=== PATIENT | male | born 1945 | race Caucasian/White ===

== ENCOUNTER 2017-10-15 17:19 | Emergency (ER) | payer MEDICARE, BC ==
[~2017-10-15] VITALS: Ht 177.8 cm; Wt 84.7 kg
[2017-10-15] MEDS ORDERED: dexamethasone sod phosphate 10mg/ml inj IV STA (17:36)
[2017-10-15] MEDS ORDERED: clindamycin-Cleocin 900mg/D5W 50 ML IV ONE (17:40)
[2017-10-15] MEDS ORDERED: iohexol 300mg/ml 100ml inj. ONE (17:47)
[2017-10-15 18:03] LABS: BASOPHILS # (AUTO) 0.1 X10'3 (0-0.2); BASOPHILS % (AUTO) 0.8 % (0-1); EOSINOPHILS # (AUTO) 0.1 X10'3 (0-0.9); EOSINOPHILS % (AUTO) 1.1 % (0-6); HEMATOCRIT 42.3 % (42.0-52.0); HEMOGLOBIN 14.8 g/dl (14.0-17.9); LYMPHOCYTES # (AUTO) 2.8 X10'3 (1.1-4.8); LYMPHOCYTES % (AUTO) 29.9 % (21-51); MEAN CORPUSCULAR HEMOGLOBIN 31.9 PG (27.0-31.0); MEAN CORPUSCULAR VOLUME 91.2 FL (78-98); MEAN PLATELET VOLUME 7.1 FL (7.4-10.4); MONOCYTES # (AUTO) 0.7 X10'3 (0-0.9); MONOCYTES % (AUTO) 7.9 % (2-12); NEUTROPHILS # (AUTO) 5.6 X10'3 (1.8-7.7); NEUTROPHILS % (AUTO) 60.3 % (42-75); PLATELET COUNT 261 X10'3 (140-440); RED BLOOD COUNT 4.63 X10'6 (4.70-6.10); RED CELL DISTRIBUTION WIDTH 13.1 % (11.5-14.5); WHITE BLOOD COUNT 9.2 X10'3 (4.5-11.0)
[2017-10-15 18:14] LABS: ALBUMIN 3.7 G/DL (3.4-5.0); ANION GAP 11 (8-16); BLOOD UREA NITROGEN 15 MG/DL (7-18); BUN/CREATININE RATIO 11.9 (5.4-32.0); CALCIUM 8.7 MG/DL (8.5-10.1); CHLORIDE 105 MMOL/L (99-107); CREATININE 1.26 MG/DL (0.60-1.10); GLUCOSE 101 MG/DL (70-104); POTASSIUM 3.6 MMOL/L (3.5-5.1); SODIUM 139 MMOL/L (135-145); TOTAL CARBON DIOXIDE 23.2 MMOL/L (24-32); eGFR 57 ML/MIN
[2017-10-15 19:09] LABS: MONOTEST NEGATIVE (Neg)
[2017-10-15] MEDS ORDERED: MULT-38 PO (20:28)
[2017-10-15] MEDS ORDERED: MESA500C PO (20:28)
[2017-10-15] MEDS ORDERED: OMEP20TA23 PO (20:28)
[2017-10-15] MEDS ORDERED: ondansetron/PF 4mg/2ml inj IV STA (20:58)
[2017-10-15] MEDS ORDERED: morphine 4 MG/ML inj SYRINge IV STA (20:58)
[2017-10-15] MEDS ORDERED: hydrALAZINE 20mg/ml inj. IV STA (21:22)
[2017-10-15 22:45] VITALS: BP 152/77
== END 2017-10-15 23:06 | disposition short-term general hospital (02) ==
LOC: ER 17:20
DX: I71.2 Thoracic aortic aneurysm, without rupture (principal); L03.221 Cellulitis of neck; M60.9 Myositis, unspecified; R59.1 Generalized enlarged lymph nodes; I10 Essential (primary) hypertension; Z79.899 Other long term (current) drug therapy
CPT/HCPCS: 36415; 70491; 71260; 80048; 83605; 84145; 85025; 86308; 87040; 93005; 96365; 96375; 99285; J0360; J1100; J2270; J2405; J3490; J7030; Q9967

== ENCOUNTER 2019-04-15 10:47 | Inpatient (IN) | payer MEDICARE ==
[2019-04-08 14:59] LABS: BASOPHILS # (AUTO) 0.1 X10'3 (0-0.2); BASOPHILS % (AUTO) 0.6 % (0-1); EOSINOPHILS # (AUTO) 0.4 X10'3 (0-0.9); EOSINOPHILS % (AUTO) 4.7 % (0-6); LYMPHOCYTES # (AUTO) 2.5 X10'3 (1.1-4.8); LYMPHOCYTES % (AUTO) 26.5 % (21-51); MEAN CORPUSCULAR HEMOGLOBIN 31.7 PG (27.0-31.0); MEAN CORPUSCULAR HGB CONC 35.1 g/dL (33.0-36.5); MEAN CORPUSCULAR VOLUME 90.3 FL (78-98); MEAN PLATELET VOLUME 7.2 FL (7.4-10.4); MONOCYTES % (AUTO) 10.8 % (2-12); NEUTROPHILS # (AUTO) 5.4 X10'3 (1.8-7.7); NEUTROPHILS % (AUTO) 57.4 % (42-75); PRE OP HEMATOCRIT 42.4 % (42.0-52.0); PRE OP HEMOGLOBIN 14.9 g/dL (14.0-17.9); PRE OP PLATELET COUNT 217 X10'3 (140-440)
[2019-04-08 15:15] LABS: ALBUMIN 3.8 G/DL (3.4-5.0); ALBUMIN/GLOBULIN RATIO 0.9 (1.1-1.5); ALKALINE PHOSPHATASE 87 IU/L (46-116); BLOOD UREA NITROGEN 18 MG/DL (7-18); BUN/CREATININE RATIO 16.2 (5.4-32.0); CALCIUM 8.6 MG/DL (8.5-10.1); CHLORIDE 105 MMOL/L (99-107); CREATININE 1.11 MG/DL (0.60-1.10); PRE OP ALT 30 U/L (30-65); PRE OP ANION GAP 10 (8-16); PRE OP AST 30 U/L (10-37); PRE OP BILIRUB, TOTAL 0.4 MG/DL (0.0-1.0); PRE OP GLUCOSE 102 MG/DL (70-104); PRE OP POTASSIUM 4.2 MMOL/L (3.4-5.1); PRE OP SODIUM 141 MMOL/L (135-145); TOTAL CARBON DIOXIDE 26.5 MMOL/L (24-32); TOTAL PROTEIN 7.9 G/DL (6.4-8.2); eGFR 65 ML/MIN
[~2019-04-15] VITALS: Ht 172.7 cm; Wt 83.0 kg
[2019-04-15] VITALS (16 sets, daily range): BP systolic 119–168; BP diastolic 62–92
[~2019-04-15 10:47] MED LIST: ATEN25TA PO; BALS750C PO; BALSALAZIDE DISODIUM PO SCH; Cefazolin 2GM/100ML NS IVPB 100 ML IV ONE; DOCUMENT DATE & TIME OF BETA-BLOCKER PO ONE; HYDROmorphone 1 mg/ml syringe IV PRN; HYDROmorphone inj. 0.5 MG/0.5 ML DISP.SYRIN IV PRN; LISI40TA4 PO; MULT-38 PO; OMEP20TA23 PO; acetaminophen 325mg tablet PO ONE; acetaminophen 325mg tablet PO PRN; bisacodyl 10mg suppository rectal RC PRN; celeCOXIB 100mg capsule PO ONE; diphenhydrAMINE 25mg capsule PO PRN; famotidine 10mg tablet PO ONE; gabapentin 300mg capsule PO ONE; magnesium hydroxide 30ml (MOM) UD suspension PO PRN; metoclopramide 5 mg/ml inj IV ONE; non-formulary drug (Omeprazole Magnesium (Prilosec Otc) 1 TAB) PO SCH; ondansetron/PF 4mg/2ml inj IV PRN; oxyCODONE SR 10mg (sust. release) tab -2 tabs (20mg) PO ONE; oxyCODONE/APAP 10/325mg tablet PO PRN; ringers solution, lacted 1,000 ML IV SCH; tranexamic acid 1gm/0.7% sal. 100 ML IV ONE; tranexamic acid inj. 1,000 MG in normal saline 100 ML IV ONE; vancomycin inj 1,500 MG in normal saline 300ml IV soln IV ONE
[2019-04-15] MEDS ORDERED: ketorolac trometh. 30mg/ml inj. ONE (12:07)
[2019-04-15] MEDS ORDERED: ROPIVAcaine 0.5% (5mg/ml) 30ml vial ONE ×2 (12:08→13:34)
[2019-04-15] MEDS ORDERED: cloNIDine hcl/PF 100mcg/ml inj ONE (12:08)
[2019-04-15] MEDS ORDERED: epiNEPHrine 1 mg/ml inj ONE (12:08)
[2019-04-15] MEDS ORDERED: vancomycin 1,000mg inj ONE (12:08)
[2019-04-15] MEDS ORDERED: ROPIVAcaine 0.2%/PF PUMP/bolus 550 ML ADDCANAL SCH (12:35)
[2019-04-15] MEDS ORDERED: ondansetron/PF 4mg/2ml inj IV PRN (12:35)
[2019-04-15] MEDS ORDERED: ringers solution, lacted 1,000 ML IV SCH (12:35)
[2019-04-15] MEDS ORDERED: ROPIVAcaine 0.2% (10 MG/5 ML) BOLUS INJECTION ADDCANAL PRN (12:35)
[2019-04-15] MEDS ORDERED: morphine 4 MG/ML inj SYRINge IV PRN (12:35)
[2019-04-15] MEDS ORDERED: HYDROmorphone inj. 0.5 MG/0.5 ML DISP.SYRIN IV PRN ×2 (12:35)
[2019-04-15] MEDS ORDERED: fentaNYL/PF 50MCG/1 ML 2ML syringe ONE (12:41)
[2019-04-15] MEDS ORDERED: MIDAZolam 5mg/5ml vial ONE (12:42)
[2019-04-15] MEDS ORDERED: diphenhydrAMINE 50 mg/ml inj ONE (14:04)
[2019-04-15] MEDS ORDERED: LIDOcaine 1%/PF 5ML 10 MG/ML VIAL ONE (14:04)
[2019-04-15] MEDS ORDERED: propofol inj 20 ML IV ONE (14:04)
[2019-04-15] MEDS ORDERED: flumazenil 0.1 mg/ml inj. IV ONE (15:08)
--- NOTE | 2019-04-15 15:10 | NUR ---
Received from OR via BED , accompanied by Anesthesiologist DR BALL and report given by Anesthesiolgist. PATIENT WAKING UP, DENIES PAIN, V/S WNL, NEUROVASCULAR CHECKS INTACT, 18G PIV LUE , JANEEN DRESSING TO LEFT KNEE CDI W/ COLD POWDER PACK AND SENSATION T-12 .
--- NOTE | 2019-04-15 15:38 | NUR ---
Received report from recovery. Awaiting patient's arrival to room 0047O
--- NOTE | 2019-04-15 16:10 | NUR ---
Patient arrived to room 4022A. Post-op vitals in progress. Patient vital signs are stable. Bed locked and lowered, nonskid socks on, call light in reach, and frequent rounding.
--- NOTE | 2019-04-15 16:10 | NUR ---
PATIENT WAKING UP, DENIES PAIN, V/S WNL, NEUROVASCULAR CHECKS INTACT, 18G PIV LUE , JANEEN DRESSING TO LEFT KNEE CDI W/ COLD POWDER PACK AND SENSATION T-12. PATIENT TAKEN TO 4022B WITH ALL BELONGINGS AND HOOKED UP TO MONITORS IN ROOM AND REPORT GIVEN TO RETAIL BRANCH MANAGER WHO HAS TAKEN OVER PATIENT CARE. .
[2019-04-15] MEDS: gabapentin 300mg capsule PO SCH ×3 (16:22→21:37)
[2019-04-15] MEDS: multivitamins, therapeutics tablet PO SCH (16:22)
[2019-04-15] MEDS: aspirin 325mg tablet PO SCH (16:23)
[2019-04-15] MEDS ORDERED: pantoprazole 40mg Tablet.DR PO SCH (16:28)
[2019-04-15] MEDS: cefazolin/dext.iso 2gm/100ml 100 ML IV SCH (17:09)
--- NOTE | 2019-04-15 18:25 | NUR ---
Problems reprioritized. Patient report given, questions answered & plan of care reviewed with VIDHYA Mccarty. Patient stable at transfer of care.
--- NOTE | 2019-04-15 18:27 | NUR ---
Report rec'd from Kalie Larson rn.
--- NOTE | 2019-04-15 18:38 | NUR ---
END OF DAY NOTE Patient arrived to floor at 1610 today. Vital signs stable. Post-op vitals are in progress. Post-op antibiotic given. Patient ambulated 80ft. with PT with FWW. Patient is advancing diet as tolerated. Patient stable at transfer of care.
[2019-04-15] MEDS ORDERED: tranexamic acid inj. 800 MG in normal saline 100ml IV soln 100 ML IV ONE (19:30)
[2019-04-15] MEDS: BALSALAZIDE DISODIUM 750 MG PO SCH (20:00)
[2019-04-15] MEDS ORDERED: lisinopril 5mg tablet PO SCH (21:00)
[2019-04-15] MEDS ORDERED: sennosides 8.6mg tablet PO SCH (21:00)
[2019-04-15] MEDS ORDERED: atenolol 25mg tablet PO SCH (21:00)
[2019-04-15] MEDS: potassium cl 20mEq in 1/2 NS 1,000 ML IV SCH (21:33)
[2019-04-15] MEDS: ascorbic acid 500mg tablet PO SCH (21:37)
[2019-04-16] MEDS: potassium cl 20mEq in 1/2 NS 1,000 ML IV SCH (00:30)
[2019-04-16] MEDS: cefazolin/dext.iso 2gm/100ml 100 ML IV SCH (01:25)
[2019-04-16 02:00] VITALS: BP 155/95
[2019-04-16 06:00] VITALS: BP 165/75
[2019-04-16 06:44] LABS: BASOPHILS # (AUTO) 0.1 X10'3 (0-0.2); BASOPHILS % (AUTO) 0.4 % (0-1); EOSINOPHILS # (AUTO) 0.1 X10'3 (0-0.9); EOSINOPHILS % (AUTO) 0.8 % (0-6); HEMATOCRIT 36.4 % (42.0-52.0); HEMOGLOBIN 12.6 g/dl (14.0-17.9); LYMPHOCYTES # (AUTO) 1.7 X10'3 (1.1-4.8); MEAN CORPUSCULAR HEMOGLOBIN 31.7 PG (27.0-31.0); MEAN CORPUSCULAR HGB CONC 34.5 g/dL (33.0-36.5); MEAN CORPUSCULAR VOLUME 91.9 FL (78-98); MEAN PLATELET VOLUME 7.5 FL (7.4-10.4); MONOCYTES # (AUTO) 1.2 X10'3 (0-0.9); MONOCYTES % (AUTO) 7.6 % (2-12); NEUTROPHILS # (AUTO) 12.6 X10'3 (1.8-7.7); NEUTROPHILS % (AUTO) 80.2 % (42-75); PLATELET COUNT 215 X10'3 (140-440); RED BLOOD COUNT 3.96 X10'6 (4.70-6.10); RED CELL DISTRIBUTION WIDTH 12.9 % (11.5-14.5); WHITE BLOOD COUNT 15.7 X10'3 (4.5-11.0)
[2019-04-16 07:03] LABS: ANION GAP 5 (8-16); CHLORIDE 103 MMOL/L (99-107); POTASSIUM 4.3 MMOL/L (3.5-5.1); SODIUM 136 MMOL/L (135-145)
[2019-04-16] MEDS: gabapentin 300mg capsule PO SCH (07:29)
[2019-04-16] MEDS: multivitamins, therapeutics tablet PO SCH (07:29)
[2019-04-16] MEDS: aspirin 325mg tablet PO SCH (07:30)
[2019-04-16] MEDS: ascorbic acid 500mg tablet PO SCH (07:31)
[2019-04-16] MEDS: BALSALAZIDE DISODIUM 750 MG PO SCH (07:56)
[2019-04-16 10:04] VITALS: BP 164/76
--- NOTE | 2019-04-16 12:40 | NUR ---
Patient stable for discharge home. Education for On Q, post op care, and JANEEN dressing provided. Belongings gathered and with patient.
[2019-04-16] MEDS ORDERED: celeCOXIB 100mg capsule PO SCH (20:00)
--- NOTE | 2019-04-18 10:03 | NUR ---
Case Management DC follow up: spoke to pt via telephone: pt states he is feeling good. Pain is managed, Denies SOB, cp, emergent pain, abnormal swelling, redness, warmth to surg site, L extremity. Is getting up and around using fww, starting to do exercises. verbalizes understanding of medications and why prescribed. All needs met, questions answered at hospital. Reports there bottom part of drsg was saturated, so spouse changed drsg, just a little spot at bottom. Denies odor, denies excessive oozing and the incision is open at the distal end. OnQ pump DCd. pt has follow up w/Dr Wellington 04/29/[address] to [address] Wellington office today to let them know about incision being open, & drainage as a precaution. pt will call PCP to inquire about follow up appt. No further questions at this time.
== END 2019-04-16 12:40 | disposition home or self-care (01) | DRG 470 ==
LOC: PAS 10:47 → ORTHO 4S 10:49 → EDSTATUS 14:00 → OBSVTOIN 16:13 → INTOOBSV 16:13 → ORTHO 4S 16:13 → UNDOADMOB 16:13
PROVIDERS: ADMIT Orthopaedic Surgery; ATTEND Orthopaedic Surgery
PROC: 3E0T3BZ Introduction of Anesthetic Agent into Peripheral Nerves and Plexi, Percutaneous Approach (ICD-10-PCS; 2019-04-15)
PROC: 0SRD0J9 Replacement of Left Knee Joint with Synthetic Substitute, Cemented, Open Approach (ICD-10-PCS; principal; 2019-04-15 13:02)
DX: M17.12 Unilateral primary osteoarthritis, left knee (principal); D62 Acute posthemorrhagic anemia; K50.90 Crohn's disease, unspecified, without complications; I10 Essential (primary) hypertension; Z79.899 Other long term (current) drug therapy; K21.9 Gastro-esophageal reflux disease without esophagitis
CPT/HCPCS: 36415; 73560; 80051; 80053; 82948; 85025; 86885; 86900; 86901; 87081; 97110; 97116; 97162; 97530; A4215; A6454; A7000; C1713; C1776; G0378; J0171; J0690; J0735; J1200; J1885; J2250; J2704; J2765; J2795; J3010; J3370; J3480; J3490; J7120

== ENCOUNTER 2021-03-29 10:08 | Day surgery (SDC) | payer MEDICARE ==
[2021-03-24 10:55] LABS: BASOPHILS # (AUTO) 0.1 X10'3 (0-0.2); BASOPHILS % (AUTO) 0.7 % (0-1); EOSINOPHILS # (AUTO) 0.2 X10'3 (0-0.9); EOSINOPHILS % (AUTO) 2.5 % (0-6); HEMATOCRIT 41.8 % (42.0-52.0); HEMOGLOBIN 14.4 g/dl (14.0-17.9); LYMPHOCYTES # (AUTO) 2.3 X10'3 (1.1-4.8); MEAN CORPUSCULAR HEMOGLOBIN 30.9 PG (27.0-31.0); MEAN CORPUSCULAR HGB CONC 34.4 g/dL (33.0-36.5); MEAN CORPUSCULAR VOLUME 89.7 FL (78-98); MEAN PLATELET VOLUME 6.9 FL (7.4-10.4); MONOCYTES # (AUTO) 0.9 X10'3 (0-0.9); NEUTROPHILS # (AUTO) 5.2 X10'3 (1.8-7.7); NEUTROPHILS % (AUTO) 59.8 % (42-75); PLATELET COUNT 240 X10'3 (140-440); RED BLOOD COUNT 4.66 X10'6 (4.70-6.10); RED CELL DISTRIBUTION WIDTH 14.6 % (11.5-14.5); WHITE BLOOD COUNT 8.7 X10'3 (4.5-11.0)
[2021-03-24 11:10] LABS: ANION GAP 8 (8-16); BLOOD UREA NITROGEN 15 MG/DL (7-18); CALCIUM 8.8 MG/DL (8.5-10.1); CHLORIDE 103 MMOL/L (99-107); CREATININE 1.15 MG/DL (0.60-1.10); GLUCOSE 104 MG/DL (70-104); POTASSIUM 3.9 MMOL/L (3.5-5.1); SODIUM 140 MMOL/L (135-145); TOTAL CARBON DIOXIDE 28.8 MMOL/L (24-32); eGFR 62 ML/MIN
[2021-03-24 11:13] LABS: APTT 27 SECONDS (22-32)
[~2021-03-29] VITALS: Ht 175.3 cm; Wt 87.2 kg
[2021-03-29] VITALS (8 sets, daily range): BP systolic 134–167; BP diastolic 72–87
[~2021-03-29 10:08] MED LIST changes: -BALSALAZIDE DISODIUM PO SCH; -Cefazolin 2GM/100ML NS IVPB 100 ML IV ONE; -DOCUMENT DATE & TIME OF BETA-BLOCKER PO ONE; -HYDROmorphone 1 mg/ml syringe IV PRN; -HYDROmorphone inj. 0.5 MG/0.5 ML DISP.SYRIN IV PRN; +LISI40TA13 PO; -LISI40TA4 PO; -acetaminophen 325mg tablet PO ONE; -acetaminophen 325mg tablet PO PRN; -bisacodyl 10mg suppository rectal RC PRN; -celeCOXIB 100mg capsule PO ONE; -diphenhydrAMINE 25mg capsule PO PRN; -famotidine 10mg tablet PO ONE; -gabapentin 300mg capsule PO ONE; -magnesium hydroxide 30ml (MOM) UD suspension PO PRN; -metoclopramide 5 mg/ml inj IV ONE; -non-formulary drug (Omeprazole Magnesium (Prilosec Otc) 1 TAB) PO SCH; -ondansetron/PF 4mg/2ml inj IV PRN; -oxyCODONE SR 10mg (sust. release) tab -2 tabs (20mg) PO ONE; -oxyCODONE/APAP 10/325mg tablet PO PRN; -ringers solution, lacted 1,000 ML IV SCH; -tranexamic acid 1gm/0.7% sal. 100 ML IV ONE; -tranexamic acid inj. 1,000 MG in normal saline 100 ML IV ONE; -vancomycin inj 1,500 MG in normal saline 300ml IV soln IV ONE
[2021-03-29] MEDS ORDERED: LORazepam 0.5 MG tablet PO PRN (10:30)
[2021-03-29] MEDS ORDERED: diphenhydrAMINE 25mg capsule PO PRN (10:30)
[2021-03-29] MEDS ORDERED: normal saline 1,000 ML IV SCH (10:30)
[2021-03-29] MEDS ORDERED: ZINC50TA67 PO (10:44)
[2021-03-29] MEDS ORDERED: vitamin d3 PO (10:44)
[2021-03-29] MEDS ORDERED: vitamin b12 PO (10:44)
[2021-03-29] MEDS ORDERED: ASCO500C17 PO (10:44)
[2021-03-29] MEDS ORDERED: AMLO-708 PO (10:44)
[2021-03-29] MEDS ORDERED: ASPI-611 PO (10:44)
[2021-03-29] MEDS ORDERED: midazolam 1 mg/ML 2ml injection ONE (12:07)
[2021-03-29] MEDS ORDERED: hydrocortisone sod succ/PF 100mg/2ml inj. ONE (12:07)
[2021-03-29] MEDS ORDERED: LIDOcaine 1% (10mg/ml)w/preservative injection 20ml MDV ONE (12:08)
[2021-03-29] MEDS ORDERED: fentaNYL/PF 50MCG/1 ML 2ML syringe ONE (12:08)
[2021-03-29] MEDS ORDERED: iohexol 350MG/ML 100ml bottle IV ONE (12:08)
[2021-03-29] MEDS ORDERED: famotidine/PF 10 mg/ml inj IV ONE (12:11)
[2021-03-29] MEDS ORDERED: nitroGLYCERIN-Tridil 50MG/D5W 250 ML IV ONE (12:27)
[2021-03-29] MEDS ORDERED: verapamil 2.5 mg/ml inj IV ONE (12:28)
[2021-03-29] MEDS ORDERED: heparin 1,000unit/ml 10ml vial 10 ML ONE (12:28)
[2021-03-29] MEDS ORDERED: iohexol 350 MG/ML 50ML vial IV ONE (13:12)
[2021-03-29] MEDS ORDERED: HYDROcodone/acetaminophen 5mg/325mg tablet PO PRN (13:55)
[2021-03-29] MEDS ORDERED: proCHLORperazine 10 MG/2 ml inj IV PRN (13:55)
[2021-03-29] MEDS ORDERED: ondansetron/PF 4mg/2ml inj IV PRN (13:55)
[2021-03-29] MEDS ORDERED: HYDROcodone/acetaminophen 10/325mg tab PO PRN (13:55)
[2021-03-29] MEDS ORDERED: OXAZEpam 15mg capsule PO PRN (13:55)
== END 2021-03-29 16:00 | disposition home or self-care (01) ==
LOC: SSTAY O 10:08
PROVIDERS: ATTEND Internal Medicine Interventional Cardiology
DX: Z01.818 Encounter for other preprocedural examination (principal); I25.10 Atherosclerotic heart disease of native coronary artery without angina pectoris; I71.2 Thoracic aortic aneurysm, without rupture; I35.1 Nonrheumatic aortic (valve) insufficiency; I10 Essential (primary) hypertension; K21.9 Gastro-esophageal reflux disease without esophagitis; E78.5 Hyperlipidemia, unspecified; Z79.899 Other long term (current) drug therapy; Z79.82 Long term (current) use of aspirin; Z79.01 Long term (current) use of anticoagulants
CPT/HCPCS: 36415; 80048; 85025; 85610; 85730; 93005; 93458; 93567; 99152; 99153; C1769; C1894; J1644; J1720; J2250; J3010; J3490; J7030; Q0163; Q9967; A4620